=== PATIENT | male | born 1985 | race Caucasian/White ===

== ENCOUNTER 2019-05-23 13:03 | Observation (INO) | payer OTHER ==
[~2019-05-23] VITALS: Wt 92.5 kg
--- NOTE | 2019-05-23 13:37 | NUR ---
Ambulatory in Day Surgery Surgical site prepped with 2% Chlorhexidine cloth wipe. Lungs clear T/O to Auscultation. Patient confirms NPO status and agrees with scheduled surgery. Pre-Op teaching done. Pt verbalizes understanding. NO CURRENT HP
--- NOTE | 2019-05-23 19:00 | NUR ---
POST OP - PT TO ROOM 227 AT THIS TIME. S/P LAP APPY. DRESSINGS X3 TO ABD CDI. VSS. ELEN SIPS FLUIDS. PLAN TO DC HOME TONIGHT AT 2100 IF VOIDING, AMBULATING, ELEN FLUIDS AND PAIN IS UNDER CONTROL. BEDSIDE REPORT GIVEN TO LES PALACIO.
[2019-05-23] MEDS ORDERED: Norco 5-325 Ta1 EACH PO (21:23)
--- NOTE | 2019-05-23 21:58 | NUR ---
DISCHARGE SUMMARY: PT DISCHARGED HOME AT APPROX 2140. PT EDUCATED ON HOW TO MANAGE PAIN AT HOME AND SIGNS/SYMPTOMS OF INFECTION. PT TOLD TO CALL SURGICAL UNIT FOR ANY QUESTIONS OR CONCERNS. PRIOR TO DISCHARGE, PT AMBULATING INDEPENDENTLY, VOIDING AND ELEN REGULAR DIET WITHOUT ANY N/V. PT REPORTED PAIN BEING WELL MANAGED. PT AWARE OF FOLLOW UP APPOINTMENT. PT DISCHARGED WITHOUT ANY FURTHER QUESTIONS OR CONCERNS.
== END 2019-05-23 21:37 | disposition home or self-care (01) ==
LOC: SURS 13:03
PROVIDERS: ADMIT Surgery
PROC: 0DTJ4ZZ Resection of Appendix, Percutaneous Endoscopic Approach (ICD-10-PCS; principal; 2019-05-23 17:00)
DX: K35.80 Unspecified acute appendicitis (principal); Z98.890 Other specified postprocedural states; Z88.0 Allergy status to penicillin
CPT/HCPCS: J0744; J1100; J1885; J2250; J2405; J2704; J2710; J3010; J7120

== ENCOUNTER → 2019-05-23 | Outpatient (CLI) | payer OTHER ==
[~2019-05-23] MED LIST: Norco 5-325 Ta1 EACH PO
[2019-05-23 11:06] LABS: BASOPHILS ABSOLUTE AUTO 0.05 K/mm3 (0.00-0.23); BASOPHILS PERCENT AUTO 0 % (0-2); EOSINOPHILS ABSOLUTE AUTO 0.07 K/mm3 (0.00-0.68); EOSINOPHILS PERCENT AUTO 1 % (0-6); Hematocrit 50.6 % (37.0-53.0); Hemoglobin 17.1 g/dL (13.5-17.5); IMMATURE GRAN ABSOLUTE AUTO 0.03 K/mm3 (0.00-0.10); IMMATURE GRAN PERCENT AUTO 0 % (0-1); LYMPHOCYTES PERCENT AUTO 24 % (21-46); MONOCYTES ABSOLUTE AUTO 1.41 K/mm3 (0.16-1.47); MONOCYTES PERCENT AUTO 11 % (4-13); Mean Corpuscular HGB 29.2 pg (26.0-34.0); Mean Corpuscular HGB Conc 33.8 g/dL (31.5-36.5); Mean Corpuscular Volume 87 fL (80-100); Mean Platelet Volume 10.5 fL (9.1-12.4); NEUTROPHILS ABSOLUTE AUTO 8.49 K/mm3 (1.96-9.15); NEUTROPHILS PERCENT AUTO 65 % (41-73); Platelet Count 294 K/mm3 (150-400); RDW Coefficient Variation 11.8 % (11.7-14.2); RDW Standard Deviation 37.8 fL (35.1-46.3); Red Blood Cell Count 5.85 M/mm3 (4.30-5.90); White Blood Cell Count 13.15 K/mm3 (4.00-11.30)
[2019-05-23 11:29] LABS: Alanine Aminotransfer (ALT/SGP 68 U/L (12-78); Albumin, Blood 4.3 g/dL (3.4-5.0); Albumin/Globulin Ratio 0.9 (0.8-1.8); Alk Phos 64 U/L (50-136); Anion Gap 5 mmol/L (6-16); Aspartate Aminotrans (AST/SGOT 23 U/L (12-37); Bilirubin, Total 1.5 mg/dL (0.1-1.0); Blood Urea Nitrogen 12 mg/dL (8-24); Bun/Creatinine Ratio 15.1 (12.0-20.0); CO2, Blood 31 mmol/L (21-32); Calcium, Blood 10.2 mg/dL (8.5-10.1); Chloride, Blood 101 mmol/L (98-108); Creatinine, Blood 0.79 mg/dL (0.60-1.20); Globulin, Blood 4.8 g/dL (2.2-4.0); Glomerular Filtration Rate >60 (60-); Glucose, Blood 100 mg/dL (70-99); Potassium, Blood 4.2 mmol/L (3.5-5.5); Sodium, Blood 137 mmol/L (136-145); Total Protein, Blood 9.1 g/dL (6.4-8.2)
== END | disposition home or self-care (01) ==
LOC: LAB SHORT 11:00 → LAB 11:00
PROVIDERS: Nurse Practitioner Family
DX: R10.9 Unspecified abdominal pain (principal)
CPT/HCPCS: 80053; 83690; 85025

== ENCOUNTER → 2022-04-15 | Outpatient (CLI) | payer OTHER | END | disposition home or self-care (01) | LOC: LAB 10:04 → LAB SHORT 10:04 | DX: D17.22 Benign lipomatous neoplasm of skin and subcutaneous tissue of left arm (principal) | CPT/HCPCS: 88305 ==